=== PATIENT | male | born 1990 | race Native Hawaiian/Other Pacific Islander ===

== ENCOUNTER 2016-11-14 16:27 | Emergency (ER) | payer OTHER ==
[~2016-11-14] VITALS: Ht 172.7 cm; Wt 81.8 kg
[2016-11-14] MEDS ORDERED: CLOT1CRE71 TOP (16:53)
[2016-11-14] MEDS ORDERED: TIZA4CAP3 PO (16:53)
[2016-11-14] MEDS ORDERED: GABA600T PO (16:53)
[2016-11-14] MEDS ORDERED: KETOROLAC 60 MG/2 ML VIAL (J1885) IM ONE (17:15)
[2016-11-14 17:51] VITALS: BP 98/50
[2016-11-14] MEDS ORDERED: NAPR500T PO (18:12)
[2016-11-14] MEDS ORDERED: VALI5TAB PO (18:12)
== END 2016-11-14 18:18 | disposition home or self-care (01) ==
LOC: M ED 16:27
DX: M54.9 Dorsalgia, unspecified (principal); M51.9 Unspecified thoracic, thoracolumbar and lumbosacral intervertebral disc disorder; F17.200 Nicotine dependence, unspecified, uncomplicated; Z79.899 Other long term (current) drug therapy
CPT/HCPCS: 96372; 99282; J1885; J3360